=== PATIENT | male | born 1975 | race African-American/Black ===

== ENCOUNTER 2023-04-25 23:42 | Observation (INO) ==
[2023-04-25] MEDS ORDERED: ZOSYN 3.375 GM 3.375 GM in SODIUM CHLORIDE 100ML 100 ML IV ONE (23:51)
[2023-04-25] MEDS ORDERED: VANCOMYCIN 1.5 GRAM/300 ML PREMIX 1.5 GM/300 ML BAG IV ONE (23:52)
--- NOTE | 2023-04-25 23:56 | ED.PDOC ---
General ED Provider: Dr. JOSE ALFREDO MONROE MD Chief Complaint: Abscess Stated Complaint: abscess L groin abscess for the last several days. Has been taking some Bactrim from a friend without improvement. Time Seen by Provider: 04/25/23 23:43 Mode of Arrival: Ambulance Information Source: EMT Exam Limitations: No limitations Nursing and Triage Documentation Reviewed and Agree: Yes Skin Complaint Exam Skin/Soft Tissue Complaint/Exam Onset/Duration: 4 days ago Symptoms Are: Still present Timing: Constant Initial Severity: Mild Current Severity: Severe Location: L groin Character: Reports Redness, Swelling, Raised and Painful Aggravating: Reports Touch Alleviating: Reports None Associated Signs and Symptoms: Reports Drainage and Tenderness Related Surgical History: Reports None Recent Exposure to Others w/Similar Symptoms: No Skin Findings: Present Erythema, Induration, Fluctuant mass and Weeping skin Joint Tenderness Present: No Differential Diagnoses: Abscess, Cellulitis and MRSA Review of Systems Review Of Systems Constitutional: Reports No symptoms All Other Systems: Reviewed and Negative [facility] Medical History (Updated 04/26/23 @ 01:35 by JOSE ALFREDO MONROE MD) Carpal tunnel syndrome, right G56.01 - Carpal tunnel syndrome, right upper limb (ICD-10) Bipolar 1 disorder F31.9 - Bipolar disorder, unspecified (ICD-10) Diabetes E11.9 - Type 2 diabetes mellitus without complications (ICD-10) Physical Exam Physical Exam Appearance: Reports Ill-appearing Ill-appearing: None Pain Distress: Moderate Eyes: Reports EOMI ENT: Reports Oropharynx normal Neck: Supple Respiratory: Reports Airway patent Cardiovascular: Reports Pulses normal GI/: Reports Soft and Nontender Musculoskeletal: Reports Other (proximal L thigh with 16 x 11 cm raised fluctuant abscess, extensive cellulitic region that extends all the way down his left medial thigh, tender to touch, erythematous, no scrotal involvement) Skin: Reports Warm Neurological: Reports Cranial nerves intact, Alert and Oriented Psychiatric: Reports Affect appropriate Procedures Incision and Drainage Site: L groin Instrument Used: 11 Blade (2 cm incision) I & D Procedure: Yes Betadine Prep and Packing placed Lidocaine Used: Yes Type of Drainage: Present Pus and Blood Irrigated: Yes Was Culture Obtained?: Yes Critical Care Note Critical Care Note Total Critical Care Time (mins): 30 Comments: Critical care time spent was exclusive of separately billable procedures. Course Course 04/26/23 00:05 04/26/23 00:05 Orders, Labs, Meds: Lab Review 04/26/23 00:05 WBC 10.02 RBC 5.06 Hgb 14.5 Hct 43.4 MCV 85.8 MCH 28.7 MCHC 33.4 RDW Coeff of Katarina 12.2 Plt Count 313 Immature Gran % (Auto) 0.4 Neut % (Auto) 69.6 Lymph % (Auto) 19.3 [place] % (Auto) 9.3 Eos % (Auto) 1.0 Baso % (Auto) 0.4 Neut # (Auto) 7.0 H Lymph # (Auto) 1.9 [place] # (Auto) 0.9 Eos # (Auto) 0.1 Baso # (Auto) 0.0 Immature Gran # (Auto) 0.0 Sodium 133.3 L Potassium 3.90 Chloride 97.6 L Carbon Dioxide 28.5 Anion Gap 11.10 BUN 10.2 Creatinine 0.59 L Estimated GFR (MDRD) 180.00 BUN/Creatinine Ratio 17.28 Glucose 294.7 H Lactic Acid 1.29 Calcium 8.92 Total Bilirubin 0.54 AST 31.4 ALT 17.5 Alkaline Phosphatase 154.3 H Total Protein 8.28 H Albumin 4.07 Globulin 4.21 Albumin/Globulin Ratio 0.96 Orders Category Date Time Status ADMIT PATIENT SWING .TO [facility] (NON-MONITORED BED) ADMISSION 04/26/23 01:28 Active ACTIVITY .Up in Chair CARE 04/26/23 01:28 Active BLOOD GLUCOSE MONITORING (MED/SURG) 0630,1100,1700,2100 CARE 04/26/23 01:28 Active GIVE HS SNACK 2100 CARE 04/26/23 01:29 Active INCISION/WOUND CARE DAILY CARE 04/26/23 01:29 Active NPO REMINDER: IMAGING ONCE CARE 04/25/23 23:51 Completed VITAL SIGNS Q12HR CARE 04/26/23 01:28 Active ADA 1800 ROWENA. DIET DIETARY 04/26/23 Breakfast Ordered HS SNACK DIETARY 04/26/23 Dinner Ordered ED IV/MEDIPORT/POWERPORT .ONCE EMERGENCY 04/25/23 23:49 Active CBC W/ AUTO DIFF DAILY@0600 LAB 04/26/23 06:00 Ordered CBC W/ AUTO DIFF DAILY@0600 LAB 04/27/23 06:00 Ordered CBC W/ AUTO DIFF Stat LAB 04/25/23 23:49 Completed CMP [COMPREHENSIVE METABOLIC PANEL] Stat LAB 04/25/23 23:49 Completed COMPREHENSIVE METABOLIC PANEL DAILY@0600 LAB 04/26/23 06:00 Ordered COMPREHENSIVE METABOLIC PANEL DAILY@0600 LAB 04/27/23 06:00 Ordered LACTIC ACID Stat LAB 04/25/23 23:49 Completed PROCALCITONIN Stat LAB 04/26/23 Ordered SARS COV-2 RNA RAPID RENITA Stat LAB 04/26/23 01:26 Ordered WOUND CULTURE Stat LAB 04/26/23 01:20 Received 0.9 % Sodium Chloride [Saline Flush] Meds 04/25/23 23:49 Active 1 syr IVF PRN PRN Fentanyl Citrate/Pf [Sublimaze] Meds 04/26/23 00:22 Discontinued 75 mcg IVP ONCE ONE Fentanyl Citrate/Pf [Sublimaze] Meds 04/26/23 01:30 Active 75 mcg IVP Q4H PRN Hydrocodone Bit/Acetaminophen [[place] 5-325] Meds 04/26/23 01:30 Active 1 tab PO Q4H PRN Insulin Regular, Human [Humulin R] Meds 04/26/23 00:22 Discontinued 8 unit SUBCUT ONCE ONE Lidocaine HCl Inj [Lidocaine 2% 20 ml Mdv] Meds 04/26/23 00:58 Discontinued 1 ml INJ ONCE ONE Piperacillin Sodium/Tazobactam [Zosyn 3.375 gm] 3.375 Meds 04/25/23 23:51 Discontinued gm 0.9 % Sodium Chloride [Sodium Chloride 100Ml] 100 ml IV ONCE Piperacillin Sodium/Tazobactam [Zosyn 3.375 gm] 3.375 Meds 04/26/23 04:00 Active gm 0.9 % Sodium Chloride [Sodium Chloride 100Ml] 100 ml IV Q8H Ringers Lactated Solution [Lactated Ringers] 1,000 ml Meds 04/26/23 00:22 Discontinued IV BOLUS Vancomycin/Water For Inj (Peg) [Vancomycin 1.5 Gram/300 Meds 04/25/23 23:52 Discontinued ml Premix] 1.5 gm in 300 ml IV ONCE RESUSCITATION STATUS Routine OTHERS 04/26/23 01:[address] PELVIS W/CONTRAST Stat RADS 04/25/23 23:49 Completed ACTIVITIES CONSULT Routine THERAPIES 04/26/23 01:28 Ordered Medications Generic Name Dose Route Start Last Admin Trade Name Freq PRN Reason Stop Dose Admin Hydrocodone Bitart/Acetaminophen 1 tab 04/26/23 01:30 Hydrocodone Bit/Acetaminophen 5/325 Mg Tablet PO Q4H PRN pain Fentanyl Citrate 75 mcg 04/26/23 01:30 Fentanyl 50 Mcg/Ml Sdv IVP Q4H PRN pain Piperacillin Sod/Tazobactam 100 mls @ 200 mls/hr 04/26/23 04:00 Sod 3.375 gm/ Sodium Chloride IV 04/29/23 03:59 Q8H KAYA Sodium Chloride 1 syr 04/25/23 23:49 0.9% Sodium Chloride 10 Ml Disp.Syrin IVF PRN PRN To flush IV Discontinued Medications Generic Name Dose Route Start Last Admin Trade Name Freq PRN Reason Stop Dose Admin Fentanyl Citrate 75 mcg 04/26/23 00:22 04/26/23 00:51 Fentanyl 50 Mcg/Ml Sdv IVP 04/26/23 00:23 75 mcg ONCE ONE Administration Piperacillin Sod/Tazobactam 100 mls @ 200 mls/hr 04/25/23 23:51 04/26/23 00:52 Sod 3.375 gm/ Sodium Chloride IV 04/26/23 00:20 200 mls/hr ONCE ONE Administration VANCOMYCIN/WATER FOR INJ (PEG) 1.5 gm in 300 mls @ 200 mls/hr 04/25/23 23:52 04/26/23 00:57 Vancomycin 1.5 Gram/300 Ml Premix IV 04/26/23 01:21 200 mls/hr ONCE ONE Administration Lactated Ringer's 1,000 mls @ 1,000 mls/hr 04/26/23 00:22 04/26/23 00:44 Lactated Ringers IV 04/26/23 01:21 1,000 mls/hr BOLUS STA Administration Insulin Human Regular 8 unit 04/26/23 00:22 04/26/23 00:55 Insulin Regular, Human 100 Unit/Ml (3ml) Vial SUBCUT 04/26/23 00:23 8 unit ONCE ONE Administration Lidocaine HCl 1 ml 04/26/23 00:58 04/26/23 01:05 Lidocaine 2% 20 Ml Mdv INJ 04/26/23 00:59 10 ml ONCE ONE Administration Patient was a difficult stick for nursing staff. Patient refused blood cultures. Patient with large groin abscess. Plan to obtain CT imaging to further evaluate the extent of this abscess. Patient is a poorly controlled diabetic who has not been taking his medications. At high risk for extension into perineal and genital area. Examination does not have any crepitus or suggestion of gas formation. Patient is afebrile but does have a slightly elevated temperature. Is mildly tachycardic. Does not have a leukocytosis or lactic acidosis. Vancomycin and Zosyn initiated in the emergency department as well as a dose of 8 units of subcu insulin and IV fluids. CT scan demonstrates extensive cellulitic changes with a forming abscess. Patient has a 7 cm abscess. Please see procedure note for incision and drainage. Patient to be admitted to the hospital for IV antibiotics, dressing change, pain control. Case discussed with hospitalist. They will accept admission. Vital Signs: Temp Pulse Resp BP Pulse Ox 04/26/23 00:05 99.5 F 105 H 20 132/91 H 100 Discharge Plan Discharge Patient Disposition: ADMITTED INPATIENT Discharge Problem: Abscess, Cellulitis, Hyperglycemia Did you review [place] [employer] for ALL controlled substances?: Not Applicable ED Provider: JOSE ALFREDO MONROE Physician Progress Note: []
[2023-04-26 00:11] LABS: BASOPHILS % (AUTO) 0.4 % (0.0-3.0); EOSINOPHILS # (AUTO) 0.1 K/ul (0.0-0.7); HEMATOCRIT 43.4 % (42.0-52.0); HEMOGLOBIN 14.5 g/dl (14.0-18.0); IMMATURE GRANULOCYTE % (AUTO) 0.4 % (0.0-5.0); LYMPHOCYTES # (AUTO) 1.9 K/uL (0.60-3.4); LYMPHOCYTES % (AUTO) 19.3 (10.0-50.0); MEAN CORPUSCULAR HEMOGLOBIN 28.7 pg (27.0-31.0); MEAN CORPUSCULAR HGB CONC 33.4 (31.8-35.4); MEAN CORPUSCULAR VOLUME 85.8 fl (80.0-94.0); MONOCYTES # (AUTO) 0.9 K/uL (0.4-2.0); MONOCYTES % (AUTO) 9.3 (0-10); NEUTROPHILS % (AUTO) 69.6 % (42.2-75.2); PLATELET COUNT 313 10^3/uL (140-440); RDW COEFFICIENT OF VARIATION 12.2 % (11.6-14.8); RED BLOOD COUNT 5.06 10^6/ul (4.70-6.10); WHITE BLOOD COUNT 10.02 K/ul (4.2-10.2)
[2023-04-26] MEDS ORDERED: LACTATED RINGERS 1,000 ML IV STA (00:22)
[2023-04-26] MEDS ORDERED: HUMULIN R SUBCUT ONE (00:22)
[2023-04-26] MEDS ORDERED: SUBLIMAZE IVP ONE (00:22)
[2023-04-26 00:24] LABS: ALANINE AMINOTRANSFERASE 17.5 U/L (0-50); ALBUMIN 4.07 g/dL (3.5-5.0); ALKALINE PHOSPHATASE 154.3 U/L (38-126); ASPARTATE AMINO TRANSFERASE 31.4 U/L (17-59); BILIRUBIN,TOTAL 0.54 mg/dL (0.2-1.3); BLOOD UREA NITROGEN 10.2 mg/dL (9-20); CALCIUM 8.92 mg/dL (8.4-10.2); CARBON DIOXIDE 28.5 mmol/L (22-30.0); CHLORIDE 97.6 mmol/L (98-107); CREATININE 0.59 mg/dL (0.60-1.10); GLUCOSE 294.7 mg/dL (74-106); SODIUM 133.3 mmol/L (134.5-145); TOTAL PROTEIN 8.28 g/dL (6.3-8.2)
[2023-04-26 00:25] LABS: POTASSIUM 3.9 mmol/L (3.5-5.1)
--- NOTE | 2023-04-26 00:55 | CT ---
EXAM: CT OF THE PELVIS WITH CONTRAST History: Left groin abscess. Technique: Multiplanar CT images through the pelvis were obtained following administration of IV con trast FINDINGS: The appendix is normal. No dilated loops of bowel. No bladder wall thickening. No perir ectal inflammation. No acute osseous abnormalities. There is extensive edema and inflammation within the left groin with developing fluid collection jude uring about 7 cm x 4.3 cm. There is associated skin thickening as well with enlarged left inguinal l ymph nodes that are reactive. Impression: Extensive left groin cellulitis with developing abscess All CT scans are performed using dose optimization techniques as appropriate to the performed exam an d include at least one of the following: Automated exposure control, adjustment of the mA and/or kV according t o size, and the use of iterative reconstruction technique.
[2023-04-26] MEDS ORDERED: LIDOCAINE 2% 20 ML MDV INJ ONE (00:58)
[2023-04-26] MEDS ORDERED: SUBLIMAZE IVP PRN (01:30)
[2023-04-26 02:14] LABS: SARS COV-2 RNA RAPID NAAT NEGATIVE (NEGATIVE)
[2023-04-26] MEDS: NORCO 5-325 PO PRN ×2 (03:35→23:45)
[2023-04-26] MEDS ORDERED: ZOSYN 3.375 GM 3.375 GM in SODIUM CHLORIDE 100ML 100 ML IV SCH ×2 (04:00→08:00)
[2023-04-26 04:25] VITALS: BMI 34.1
[2023-04-26] MEDS: HUMULIN R SUBCUT PRN ×4 (06:32→20:42)
[2023-04-26] MEDS: ZOSYN 3.375 GM 3.375 GM in SODIUM CHLORIDE 100ML 100 ML IV SCH ×4 (08:08→23:37)
[2023-04-26] MEDS ORDERED: VANCOMYCIN 1 GRAM/200 ML PREMIX 1 GM/200 ML BAG IV SCH (09:00)
[2023-04-26] MEDS: VANCOMYCIN 1.25 GM/250 ML BAG 1.25 GM/250 ML BAG IV SCH ×3 (10:08→21:58)
--- NOTE | 2023-04-26 10:55 | PCM ---
Date of Service Date Seen by Provider: 04/26/23 Time Seen by Provider: 09:00 Admit Day/Time Admission Date: 04/26/23 Admission Time: 01:30 Reason for Admission Chief Complaint: ABSCESS IN LEFT GROIN Hospital Provider [facility] History of Present Illness History of Present Illness: 47 yo male presented to the ER with complaints of a groin abscess. Patient states that he noticed the area "2 days ago" and it progressively got worse. Has been draining some at home "orange" drainage from blood. States that he is unaware if he has had a fever or not. Denies any other symptoms. Case Discussed With Case Discussed With: Patient's case was discussed with the ER Physicians, Dr. Gallegos [facility] Medical History Carpal tunnel syndrome, right G56.01 - Carpal tunnel syndrome, right upper limb (ICD-10) Bipolar 1 disorder F31.9 - Bipolar disorder, unspecified (ICD-10) Diabetes E11.9 - Type 2 diabetes mellitus without complications (ICD-10) Family History BROTHER Diabetes FATHER Diabetes FATHER Hypertension BROTHER Hypertension Mother Hypertension Social History Smoking and tobacco status: Former smoker Details: rarely drinks alcohol Substance use type: marijuana and methamphetamine Allergies Allergies Allergy/AdvReac Type Severity Reaction Status Date / Time morphine AdvReac Unknown Verified 04/26/23 00:05 Current Medications Home Medications aspirin 81 mg tablet,delayed release (Adult Aspirin Regimen) 81 mg PO QDAY 06/13/22 [History Confirmed 08/13/22 Last Taken Unknown] hydroxyzine HCl 25 mg tablet 25 mg PO TID PRN anxiety #90 tabs 06/13/22 [Rx Confirmed 08/13/22 Last Taken Unknown] atorvastatin 40 mg tablet 40 mg PO QPM #30 tabs 07/14/22 [Rx Confirmed 08/13/22 Last Taken Unknown] empagliflozin 10 mg tablet (Jardiance) 10 mg PO QAM #30 tabs 07/14/22 [Rx Confirmed 08/13/22 Last Taken Unknown] fluoxetine 20 mg capsule 20 mg PO QDAY #30 caps 07/14/22 [Rx Confirmed 08/13/22 Last Taken Unknown] metformin 1,000 mg tablet 1,000 mg PO BID #60 tabs 08/10/22 [Rx Confirmed 08/13/22 Last Taken Unknown] blood sugar diagnostic (Blood Glucose Test strips) #50 ea 08/12/22 [Rx Confirmed 08/12/22 Last Taken Unknown] blood-glucose meter (Blood Glucose Monitoring kit) #1 ea 08/12/22 [Rx Confirmed 08/12/22 Last Taken Unknown] lancets 33 gauge #100 ea 08/12/22 [Rx Confirmed 08/12/22 Last Taken Unknown] dulaglutide 0.75 mg/0.5 mL subcutaneous pen injector (Trulicity) 0.75 mg (0.5 mL) subcut QWEEK #2 mL 08/20/22 [Rx Last Taken Unknown] Home Hydrocodone Bitart/Acetaminophen (Hydrocodone Bit/Acetaminophen 5/325 Mg Tablet) 1 tab PO Q4H PRN PRN Reason: pain Last Admin: 04/26/23 03:35 Dose: 1 tab Piperacillin Sod/Tazobactam (Sod 3.375 gm/ Sodium Chloride) 100 mls @ 200 mls/hr IV Q6HR [facility] Stop: 04/29/23 07:29 Last Admin: 04/26/23 08:08 Dose: 200 mls/hr VANCOMYCIN/WATER FOR INJ (PEG) (Vancomycin 1.25 Gm/250 Ml Bag) 1.25 gm in 250 mls @ 250 mls/hr IV Q8HR [facility] Stop: 04/29/23 07:59 Last Admin: 04/26/23 10:08 Dose: 250 mls/hr Insulin Human Regular (Insulin Regular, Human 100 Unit/Ml (3ml) Vial) 0 unit SUBCUT PRN PRN; Protocol PRN Reason: Hyperglycemia Last Admin: 04/26/23 06:32 Dose: 12 unit Sodium Chloride (0.9% Sodium Chloride 10 Ml Disp.Syrin) 1 syr IVF PRN PRN PRN Reason: To flush IV Discontinued Medications Fentanyl Citrate (Fentanyl 50 Mcg/Ml Sdv) 75 mcg IVP ONCE ONE Stop: 04/26/23 00:23 Last Admin: 04/26/23 00:51 Dose: 75 mcg Fentanyl Citrate (Fentanyl 50 Mcg/Ml Sdv) 75 mcg IVP Q4H PRN PRN Reason: pain Piperacillin Sod/Tazobactam (Sod 3.375 gm/ Sodium Chloride) 100 mls @ 200 mls/hr IV ONCE ONE Stop: 04/26/23 00:20 Last Admin: 04/26/23 00:52 Dose: 200 mls/hr VANCOMYCIN/WATER FOR INJ (PEG) (Vancomycin 1.5 Gram/300 Ml Premix) 1.5 gm in 300 mls @ 200 mls/hr IV ONCE ONE Stop: 04/26/23 01:21 Last Admin: 04/26/23 00:57 Dose: 200 mls/hr Lactated Ringer's (Lactated Ringers) 1,000 mls @ 1,000 mls/hr IV BOLUS STA Stop: 04/26/23 01:21 Last Infusion: 04/26/23 08:02 Dose: Infused Piperacillin Sod/Tazobactam (Sod 3.375 gm/ Sodium Chloride) 100 mls @ 200 mls/hr IV Q8H KAYA Stop: 04/29/23 03:59 Last Admin: 04/26/23 07:26 Dose: Not Given Piperacillin Sod/Tazobactam (Sod 3.375 gm/ Sodium Chloride) 100 mls @ 200 mls/hr IV Q8H KAYA Stop: 04/29/23 07:59 Insulin Human Regular (Insulin Regular, Human 100 Unit/Ml (3ml) Vial) 8 unit SUBCUT ONCE ONE Stop: 04/26/23 00:23 Last Admin: 04/26/23 00:55 Dose: 8 unit Lidocaine HCl (Lidocaine 2% 20 Ml Mdv) 1 ml INJ ONCE ONE Stop: 04/26/23 00:59 Last Admin: 04/26/23 01:05 Dose: 10 ml Review of Systems Constitutional: Reports No symptoms Head: Reports Normocephalic and Atraumatic Eyes: Reports No symptoms Ears: Reports No symptoms Nose: Reports No symptoms Mouth: Reports No symptoms Throat: Reports No symptoms Cardiovascular: Reports No symptoms Respiratory: Reports No symptoms Gastrointestinal: Reports No symptoms Genitourinary: Reports No Symptoms Musculoskeletal: Reports No symptoms Dermatologic: Reports Other (abscess to L groin) Endocrine: Reports No symptoms Hematology: Reports No symptoms Immunology: Reports No symptoms Neurological: Reports No symptoms Psychiatric: Reports No symptoms Physical examination Most Recent Vital Signs: Most Recent Vital Signs Temperature 98.9 F 04/26/23 06:00 Temperature Source Temporal Artery Scan 10/29/23 06:00 Temperature Source Oral 04/26/23 00:05 Pulse Rate 96 04/26/23 08:00 Respiratory Rate 20 04/26/23 06:00 Blood Pressure 132/80 04/26/23 06:00 Blood Pressure Mean 97 04/26/23 06:00 Blood Pressure Left Arm 138/43 04/26/23 03:01 Blood Pressure Location Left Arm 04/26/23 06:00 Blood Pressure Position Supine 04/26/23 06:00 O2 Sat by Pulse Oximetry 100 04/26/23 06:00 Oxygen Delivery Method Room Air 04/26/23 08:00 Height 6 ft 3 in 04/26/23 03:01 Weight 273 lb 4 oz 04/26/23 03:01 Appearance: Positive No Apparent Distress and Alert and Oriented x3 Skin: Positive Other (proximal L thigh with 16 x 11 cm raised fluctuant abscess, extensive cellulitic region that extends all the way down his left medial thigh, tender to touch, erythematous, no scrotal involvement) HEENT: Positive Normocephalic and PERRLA Neck: Positive Supple and Midline Trachea Chest/Lungs: Positive Symmetrical With Equal Breath Sounds, Clear to Auscultation Bilaterally and Good Air Movement all 4 Lung Crum Heart: Positive RRR, Pulses Normal, No S3 Auscultated and No S4 Auscultated GI/: Positive Soft, Nontender, Bowel Sounds Normal and No Distention Musculoskeletal: Positive Not Examined Extremities: Positive Intact Peripheral Pulses, Stable Joints Without Laxity and Good ROM in All Joints Neurological: Positive Sensation Intact, Motor intact, Reflexes Intact, Alert, Oriented and Muscle Strength 5/5 in Upper and Lower Extremities Bilaterally Psychiatric: Positive Other (agitated) Labs This Visit Labs This Visit: Labs This Visit 04/26/23 04/26/23 00:05 01:37 WBC 10.02 RBC 5.06 Hgb 14.5 Hct 43.4 MCV 85.8 MCH 28.7 MCHC 33.4 RDW Coeff of Katar[place] 12.2 Plt Count 313 Immature Gran % (Auto) 0.4 Neut % (Auto) 69.6 Lymph % (Auto) 19.3 [place] % (Auto) 9.3 Eos % (Auto) 1.0 Baso % (Auto) 0.4 Neut # (Auto) 7.0 H Lymph # (Auto) 1.9 [place] # (Auto) 0.9 Eos # (Auto) 0.1 Baso # (Auto) 0.0 Immature Gran # (Auto) 0.0 Sodium 133.3 L Potassium 3.90 Chloride 97.6 L Carbon Dioxide 28.5 Anion Gap 11.10 BUN 10.2 Creatinine 0.59 L Estimated GFR (MDRD) 180.00 BUN/Creatinine Ratio 17.28 Glucose 294.7 H Lactic Acid 1.29 Calcium 8.92 Total Bilirubin 0.54 AST 31.4 ALT 17.5 Alkaline Phosphatase 154.3 H Total Protein 8.28 H Albumin 4.07 Globulin 4.21 Albumin/Globulin Ratio 0.96 Procalcitonin < 0.05 SARS CoV-2 RNA Rapid RENITA Negative Microbiology This Visit 04/26/23 01:20 Groin Wound Culture - Preliminary Imaging Imaging: EXAM: CT OF THE PELVIS WITH CONTRAST History: Left groin abscess. Technique: Multiplanar CT images through the pelvis were obtained following administration of IV contrast FINDINGS: The appendix is normal. No dilated loops of bowel. No bladder wall thickening. No perirectal inflammation. No acute osseous abnormalities. There is extensive edema and inflammation within the left groin with developing fluid collection measuring about 7 cm x 4.3 cm. There is associated skin thickening as well with enlarged left inguinal lymph nodes that are reactive. Impression: Extensive left groin cellulitis with developing abscess Review Statement Review Statement: I have independently reviewed and interpreted the labs/EKGs/imaging that were ordered by the ER provider. I have reviewed all outside records that are available currently in our EMR including imaging/notes/labs from previous visits. Plan Plan: 1. Extensive left groin cellulitis with developing abscess - I&D completed by ER doc with packing placed, vanc and zosyn, wound culture pending 2. Diabetes Mellitus, Type 2 - noncompliant, has taken home meds in >3 months and does not wish to, ADA diet Refusing all labs. DVT Prophylaxis: Up ad leif Time Spent: Greater than 80 minutes spent with patient, 50% of the time spent with this patient was devoted to counseling and coordination of care. [facility] Plannin minutes spent discussing advance care planning. Disposition: Admit to: Med/surg Observation Full Code Discussed Plan of Care with Dr. Charly Yusuf Medications Medication Orders: Medications Ordered Category Date Time Status 0.9 % Sodium Chloride [Saline Flush] Meds 04/25/23 23:49 Active 1 syr IVF PRN PRN Hydrocodone Bit/Acetaminophen [[place] 5-325] Meds 04/26/23 01:30 Active 1 tab PO Q4H PRN Insulin Regular, Human [Humulin R] Meds 04/26/23 06:11 Active See Protocol SUBCUT PRN PRN Piperacillin Sodium/Tazobactam [Zosyn 3.375 gm] 3.375 Meds 04/26/23 07:30 Active gm 0.9 % Sodium Chloride [Sodium Chloride 100Ml] 100 ml IV Q6HR Vancomycin/Water For Inj (Peg) [Vancomycin 1.25 gm/250 Meds 04/26/23 08:00 Active ml Bag] 1.25 gm in 250 ml IV Q8HR
[2023-04-27] MEDS: VANCOMYCIN 1.25 GM/250 ML BAG 1.25 GM/250 ML BAG IV SCH ×3 (04:55→21:23)
[2023-04-27] MEDS: HUMULIN R SUBCUT PRN ×4 (05:55→20:29)
[2023-04-27] MEDS: ZOSYN 3.375 GM 3.375 GM in SODIUM CHLORIDE 100ML 100 ML IV SCH ×4 (06:12→23:52)
--- NOTE | 2023-04-27 09:18 | PCM.PROG ---
Date/Time Seen Date Seen by Provider: 04/27/23 Time Seen by Provider: 08:30 Provider Provider: CAYETANO URIOSTEGUI [facility] Chief Complaint Chief Complaint: ABSCESS IN LEFT GROIN Subjective Subjective: Patient still having some pain, trying to not take pain meds if able though. Still refusing labs despite knowing importance of following infection markers, vanc trough, etc. Packing removed today. Objective Appearance: Positive Well-appearing, Well-nourished, No Apparent Distress and Alert and Oriented x3 Chest/Lungs: Positive Clear to Auscultation Bilaterally; Negative Rales, Rhonci or Wheezes Heart: Positive RRR GI/: Positive Soft, Nontender, Bowel Sounds Normal and No Distention Neurological: Positive Cranial Nerves Intact, Alert, Oriented and Muscle Strength 5/5 in Upper and Lower Extremities Bilaterally Additional Findings: Left groin - significant induration noted but no fluctuance noted. Packing removed. No significant drainage/purulence noted, only mild amount of blood tinged fluid. No involvement of penis/scrotum/perineal area. Redness improving and localized now to indurated area. Mild warmth noted. Vital Signs Vital Signs: Vital Signs: Last 24 Hours 04/26/23 10:00 04/26/23 11:00 04/26/23 11:53 Temperature 97.7 F Temperature Source Temporal Artery Scan Pulse Rate 82 Respiratory Rate 24 H Blood Pressure 138/89 Blood Pressure Mean 105 Blood Pressure Location Right Arm Blood Pressure Position O2 Sat by Pulse Oximetry 100 Oxygen Delivery Method Room Air Room Air Room Air 04/26/23 13:00 04/26/23 14:00 04/26/23 14:00 Temperature 97.7 F Temperature Source Temporal Artery Scan Pulse Rate 93 Respiratory Rate 20 Blood Pressure 137/84 Blood Pressure Mean 101 Blood Pressure Location Left Arm Blood Pressure Position Supine O2 Sat by Pulse Oximetry 99 Oxygen Delivery Method Room Air Room Air Room Air 04/26/23 15:00 04/26/23 16:00 04/26/23 17:00 Temperature Temperature Source Pulse Rate Respiratory Rate Blood Pressure Blood Pressure Mean Blood Pressure Location Blood Pressure Position O2 Sat by Pulse Oximetry Oxygen Delivery Method Room Air Room Air Room Air 04/26/23 18:00 04/26/23 18:00 04/26/23 19:00 Temperature 97 F L Temperature Source Temporal Artery Scan Pulse Rate 94 Respiratory Rate 18 Blood Pressure 149/90 H Blood Pressure Mean 109 Blood Pressure Location Right Arm Blood Pressure Position Sitting O2 Sat by Pulse Oximetry 100 Oxygen Delivery Method Room Air Room Air Room Air 04/26/23 20:00 04/26/23 20:00 04/26/23 21:00 Temperature Temperature Source Pulse Rate Respiratory Rate Blood Pressure Blood Pressure Mean Blood Pressure Location Blood Pressure Position O2 Sat by Pulse Oximetry Oxygen Delivery Method Room Air Room Air Room Air 04/26/23 21:09 04/26/23 22:00 04/26/23 23:00 Temperature 99.6 F Temperature Source Temporal Artery Scan Pulse Rate 86 Respiratory Rate 20 Blood Pressure 140/89 Blood Pressure Mean 106 Blood Pressure Location Left Femoral Artery Blood Pressure Position O2 Sat by Pulse Oximetry 100 Oxygen Delivery Method Room Air Room Air Room Air 04/27/23 00:00 04/27/23 01:00 04/27/23 02:00 Temperature 98.9 F Temperature Source Temporal Artery Scan Pulse Rate 95 Respiratory Rate 19 Blood Pressure 138/79 Blood Pressure Mean 98 Blood Pressure Location Left Arm Blood Pressure Position Supine O2 Sat by Pulse Oximetry 100 Oxygen Delivery Method Room Air Room Air Room Air 04/27/23 02:00 04/27/23 03:00 04/27/23 03:54 Temperature Temperature Source Pulse Rate Respiratory Rate Blood Pressure Blood Pressure Mean Blood Pressure Location Blood Pressure Position O2 Sat by Pulse Oximetry Oxygen Delivery Method Room Air Room Air Room Air 04/27/23 05:00 04/27/23 05:54 04/27/23 06:00 Temperature 99.3 F Temperature Source Temporal Artery Scan Pulse Rate 88 Respiratory Rate 17 Blood Pressure 142/91 H Blood Pressure Mean 108 Blood Pressure Location Left Arm Blood Pressure Position Supine O2 Sat by Pulse Oximetry 100 Oxygen Delivery Method Room Air Room Air Room Air 04/27/23 07:00 04/27/23 08:00 Temperature Temperature Source Pulse Rate Respiratory Rate Blood Pressure Blood Pressure Mean Blood Pressure Location Blood Pressure Position O2 Sat by Pulse Oximetry Oxygen Delivery Method Room Air Room Air Additional Comments Additional Comments: I have independently reviewed and interpreted the labs/EKGs/imaging ordered during this hospital stay. I have reviewed outside records that are available in our EMR that pertain to medical stay including imaging/notes/labs from previous visits. Active Medications Active Medications: Medications Generic Name Dose Route Start Last Admin Trade Name Freq PRN Reason Stop Dose Admin Hydrocodone Bitart/Acetaminophen 1 tab 04/26/23 01:30 04/26/23 23:45 Hydrocodone Bit/Acetaminophen 5/325 Mg Tablet PO 1 tab Q4H PRN Administration pain Piperacillin Sod/Tazobactam 100 mls @ 200 mls/hr 04/26/23 07:30 04/27/23 06:12 Sod 3.375 gm/ Sodium Chloride IV 04/29/23 07:29 200 mls/hr Q6HR KAYA Administration VANCOMYCIN/WATER FOR INJ (PEG) 1.25 gm in 250 mls @ 250 mls/hr 04/26/23 08:00 04/27/23 04:55 Vancomycin 1.25 Gm/250 Ml Bag IV 04/29/23 07:59 250 mls/hr Q8HR KAYA Administration Insulin Human Regular 0 unit 04/26/23 06:11 04/27/23 05:55 Insulin Regular, Human 100 Unit/Ml (3ml) Vial SUBCUT 5 unit PRN PRN Administration Hyperglycemia Protocol Sodium Chloride 1 syr 04/25/23 23:49 0.9% Sodium Chloride 10 Ml Disp.Syrin IVF PRN PRN To flush IV Plan Plan: 1. Extensive left groin cellulitis with developing abscess - I&D completed by ER doc with packing placed, cont vanc and zosyn, wound culture pending but showing no growth. Packing removed today. Patient will shower and cleanse area well. Will monitor for purulent discharge, will place more packing today if indicated. At this time no significant drainage noted. [place] ordered prn for pain. No penile/scrotal/perineal involvement, symptoms are improving, will not add on flagyl at this point. 2. Diabetes Mellitus, Type 2 - noncompliant, hasn't taken home meds in >3 months and does not wish to, ADA diet, sliding scale insulin. Patient continues to refuse labs despite knowing importance of monitoring infection markers, renal function, and vanc trough. He states due to his mental illness that he will become combative if anyone tries to draw his blood. Pt is sure he has had a tdap in last 5 years. Dispo - Potential discharge tomorrow if cellulitis continues to improve. Review Statement Review Statement: I have personally discussed and reviewed the patient's visit/currently labs/imaging/decision making with Dr. Yusuf, my supervising attending. Greater that 50 minutes spent with patient, 50% of the time spent with this patient was devoted to counseling and coordination of care.
[2023-04-27 14:26] LABS: BASOPHILS % (AUTO) 0.6 % (0.0-3.0); EOSINOPHILS # (AUTO) 0.2 K/ul (0.0-0.7); EOSINOPHILS % (AUTO) 2.2 % (0.0-7.0); HEMATOCRIT 41.8 % (42.0-52.0); HEMOGLOBIN 13.8 g/dl (14.0-18.0); IMMATURE GRANULOCYTE % (AUTO) 0.1 % (0.0-5.0); LYMPHOCYTES # (AUTO) 1.7 K/uL (0.60-3.4); LYMPHOCYTES % (AUTO) 23.1 (10.0-50.0); MEAN CORPUSCULAR HEMOGLOBIN 29.2 pg (27.0-31.0); MEAN CORPUSCULAR VOLUME 88.4 fl (80.0-94.0); MONOCYTES # (AUTO) 0.7 K/uL (0.4-2.0); MONOCYTES % (AUTO) 9.4 (0-10); NEUTROPHILS # (AUTO) 4.6 K/ul (2.0-6.9); NEUTROPHILS % (AUTO) 64.6 % (42.2-75.2); PLATELET COUNT 300 10^3/uL (140-440); RDW COEFFICIENT OF VARIATION 12.2 % (11.6-14.8); RED BLOOD COUNT 4.73 10^6/ul (4.70-6.10); WHITE BLOOD COUNT 7.15 K/ul (4.2-10.2)
[2023-04-27 14:36] LABS: ALANINE AMINOTRANSFERASE 13.6 U/L (0-50); ALBUMIN 3.4 g/dL (3.5-5.0); ALKALINE PHOSPHATASE 135.1 U/L (38-126); ASPARTATE AMINO TRANSFERASE 17.9 U/L (17-59); BILIRUBIN,TOTAL 0.22 mg/dL (0.2-1.3); BLOOD UREA NITROGEN 6.4 mg/dL (9-20); CALCIUM 8.33 mg/dL (8.4-10.2); CARBON DIOXIDE 30.2 mmol/L (22-30.0); CHLORIDE 100.8 mmol/L (98-107); CREATININE 0.59 mg/dL (0.60-1.10); GLUCOSE 331.8 mg/dL (74-106); POTASSIUM 4.04 mmol/L (3.5-5.1); SODIUM 132.9 mmol/L (134.5-145); TOTAL PROTEIN 7.13 g/dL (6.3-8.2)
[2023-04-27 21:38] VITALS: RESP 18
[2023-04-28] MEDS: VANCOMYCIN 1.25 GM/250 ML BAG 1.25 GM/250 ML BAG IV SCH (04:58)
[2023-04-28 05:15] VITALS: BP 132/86; PULSE 81; TEMP 98.1
[2023-04-28 05:36] LABS: BASOPHILS % (AUTO) 0.2 % (0.0-3.0); EOSINOPHILS # (AUTO) 0.1 K/ul (0.0-0.7); EOSINOPHILS % (AUTO) 1.7 % (0.0-7.0); HEMATOCRIT 41.7 % (42.0-52.0); HEMOGLOBIN 13.8 g/dl (14.0-18.0); IMMATURE GRANULOCYTE % (AUTO) 0.2 % (0.0-5.0); LYMPHOCYTES # (AUTO) 2.1 K/uL (0.60-3.4); LYMPHOCYTES % (AUTO) 24.9 (10.0-50.0); MEAN CORPUSCULAR HEMOGLOBIN 29.1 pg (27.0-31.0); MEAN CORPUSCULAR HGB CONC 33.1 (31.8-35.4); MEAN CORPUSCULAR VOLUME 87.8 fl (80.0-94.0); MONOCYTES # (AUTO) 0.8 K/uL (0.4-2.0); MONOCYTES % (AUTO) 9.3 (0-10); NEUTROPHILS # (AUTO) 5.2 K/ul (2.0-6.9); NEUTROPHILS % (AUTO) 63.7 % (42.2-75.2); PLATELET COUNT 333 10^3/uL (140-440); RDW COEFFICIENT OF VARIATION 12.1 % (11.6-14.8); RED BLOOD COUNT 4.75 10^6/ul (4.70-6.10); WHITE BLOOD COUNT 8.24 K/ul (4.2-10.2)
[2023-04-28 05:47] LABS: ALBUMIN 3.57 g/dL (3.5-5.0); ALKALINE PHOSPHATASE 110.2 U/L (38-126); ASPARTATE AMINO TRANSFERASE 16.3 U/L (17-59); BILIRUBIN,TOTAL 0.3 mg/dL (0.2-1.3); BLOOD UREA NITROGEN 7.9 mg/dL (9-20); CALCIUM 8.38 mg/dL (8.4-10.2); CARBON DIOXIDE 27.4 mmol/L (22-30.0); CHLORIDE 102.6 mmol/L (98-107); CREATININE 0.54 mg/dL (0.60-1.10); GLUCOSE 205.3 mg/dL (74-106); POTASSIUM 3.77 mmol/L (3.5-5.1); SODIUM 134.1 mmol/L (134.5-145); TOTAL PROTEIN 7.59 g/dL (6.3-8.2)
[2023-04-28] MEDS: HUMULIN R SUBCUT PRN (06:06)
[2023-04-28] MEDS: ZOSYN 3.375 GM 3.375 GM in SODIUM CHLORIDE 100ML 100 ML IV SCH (06:29)
--- NOTE | 2023-04-28 09:25 | DCSUM ---
Admission Date Admission Date: 04/26/23 Discharge Date Discharge Date: 04/28/23 Admission Diagnosis Admission Diagnosis: 1. Extensive left groin cellulitis with developing abscess Discharge Diagnosis Discharge Diagnosis: 1. Extensive left groin cellulitis with developing abscess s/p I&D due to strep agalactiae - Improved 2. Diabetes Mellitus, Type 2 - noncompliant Hospital Provider Hospital Provider: CAYETANO URIOSTEGUI PA-C, [facility] Summary of History and Physical Summary of History and Physical: 47 yo male presented to the ER with complaints of a groin abscess. Patient states that he noticed the area "2 days ago" and it progressively got worse. Has been draining some at home "orange" drainage from blood. States that he is unaware if he has had a fever or not. Denies any other symptoms. Ct pelvis in ER showed significant cellulitis and developing abscess. ERP drained abscess in ER and placed packing. Patient started on vanc and zosyn. Hospital Course Subjective: Pt remained afebrile. Cellulitis improved. Packing removed on 04/27 and no significant drainage/discharge noted. Pt ambulatory. Initially patient refused labs but was later agreeable to monitor vanc trough. WBC count normal. Pt still has significant induration but no fluctuance. Wound culture grew strep agalactiae. Sensitive to vanc and levaquin. Will discharge home on 7 days of levaquin. Advised to take warm shower and wash gently with soap and water daily. Red flags on when to return discussed. F/u with pcp this week as scheduled. Pt agrees to plan of care. Of note, patient has not been complaint with diabetes medications and states he will not take them, therefore they were not ordered for him other than sliding scale insulin. Appearance: Pleasant, No Apparent Distress, Alert, Well-appearing and Well- nourished HEENT: MMM CVS: No Murmur Abdomen: Soft, Non-Tender and No Distention Respiratory: No Dyspnea Extremities: No Edema Additional Findings: Left groin - Packing removed 04/27. Minimal bloody drainage on dressing since. Significant induration but improving. No fluctuance noted. No purulent discharge expressed. Redness and warmth significantly improved. Pt ambulatory. No involvement of penis/scrotum/perineal area. No desquamation of skin. Vital Signs: Most Recent Vital Signs Temperature 98.1 F 04/28/23 05:13 Temperature Source Oral 04/28/23 05:13 Temperature Source Oral 04/26/23 00:05 Pulse Rate 81 04/28/23 05:13 Respiratory Rate 18 04/28/23 05:13 Blood Pressure 132/86 04/28/23 05:13 Blood Pressure Mean 101 04/28/23 05:13 Blood Pressure Left Arm 138/43 04/26/23 03:01 Blood Pressure Location Right Arm 04/28/23 05:13 Blood Pressure Position Supine 04/28/23 05:13 O2 Sat by Pulse Oximetry 97 04/28/23 05:13 Oxygen Delivery Method Room Air 04/28/23 08:00 Height 6 ft 3 in 04/26/23 03:01 Weight 273 lb 4 oz 04/26/23 03:01 Imaging: EXAM: CT OF THE PELVIS WITH CONTRAST History: Left groin abscess. Technique: Multiplanar CT images through the pelvis were obtained following administration of IV contrast FINDINGS: The appendix is normal. No dilated loops of bowel. No bladder wall thickening. No perirectal inflammation. No acute osseous abnormalities. There is extensive edema and inflammation within the left groin with developing fluid collection measuring about 7 cm x 4.3 cm. There is associated skin thickening as well with enlarged left inguinal lymph nodes that are reactive. Impression: Extensive left groin cellulitis with developing abscess Lab Results Last 24 Hours: 04/28/23 04/27/23 05:05 13:56 WBC 8.24 7.15 RBC 4.75 4.73 Hgb 13.8 L 13.8 L Hct 41.7 L 41.8 L MCV 87.8 88.4 MCH 29.1 29.2 MCHC 33.1 33.0 RDW Coeff of Katarina 12.1 12.2 Plt Count 333 300 Immature Gran % (Auto) 0.2 0.1 Neut % (Auto) 63.7 64.6 Lymph % (Auto) 24.9 23.1 Coffee % (Auto) 9.3 9.4 Eos % (Auto) 1.7 2.2 Baso % (Auto) 0.2 0.6 Neut # (Auto) 5.2 4.6 Lymph # (Auto) 2.1 1.7 Coffee # (Auto) 0.8 0.7 Eos # (Auto) 0.1 0.2 Baso # (Auto) 0.0 0.0 Immature Gran # (Auto) 0.0 0.0 Sodium 134.1 L 132.9 L Potassium 3.77 4.04 Chloride 102.6 100.8 Carbon Dioxide 27.4 30.2 H Anion Gap 7.87 5.94 BUN 7.9 L 6.4 L Creatinine 0.54 L 0.59 L Estimated GFR (MDRD) 199.00 180.00 BUN/Creatinine Ratio 14.62 10.84 Glucose 205.3 H D 331.8 H Calcium 8.38 L 8.33 L Total Bilirubin 0.30 0.22 AST 16.3 L 17.9 ALT 13.0 13.6 Alkaline Phosphatase 110.2 135.1 H Total Protein 7.59 7.13 Albumin 3.57 3.40 L Globulin 4.02 3.73 Albumin/Globulin Ratio 0.88 0.91 Vancomycin Trough 7.791 L Discharge Instructions Discharge Planning: Discharge Planning > [address] Aman Yusuf. Discharge Medications: Medications at Discharge (Home Meds & RX) aspirin 81 mg tablet,delayed release (Adult Aspirin Regimen) 81 mg PO QDAY 06/13/22 hydroxyzine HCl 25 mg tablet 25 mg PO TID PRN anxiety #90 tabs 06/13/22 atorvastatin 40 mg tablet 40 mg PO QPM #30 tabs 07/14/22 empagliflozin 10 mg tablet (Jardiance) 10 mg PO QAM #30 tabs 07/14/22 fluoxetine 20 mg capsule 20 mg PO QDAY #30 caps 07/14/22 metformin 1,000 mg tablet 1,000 mg PO BID #60 tabs 08/10/22 blood sugar diagnostic (Blood Glucose Test strips) #50 ea 08/12/22 blood-glucose meter (Blood Glucose Monitoring kit) #1 ea 08/12/22 lancets 33 gauge #100 ea 08/12/22 dulaglutide 0.75 mg/0.5 mL subcutaneous pen injector (Trulicity) 0.75 mg (0.5 mL) subcut QWEEK #2 mL 08/20/22 levofloxacin 750 mg tablet 750 mg PO DAILY 7 days #7 tabs 04/28/23 Discharge Plan Discharge Discharge Orders: Discharge Patient (ONCE); Ordered 04/28/23 Ordered By: CAYETANO URIOSTEGUI Activity Restrictions/Additional Instructions: DISCHARGE TO HOME DX: LEFT GROIN ABSCESS PHARMACY: [facility]TIBIOT[facility] WASH GENTLY WITH WARM SOAP AND WATER F/U WITH PCP RETURN WITH WORSENING SYMPTOMS DISCUSSED YOU HAVE A FOLLOW UP APPOINTMENT WITH RADHA GOMEZ AT THE [facility]. PHONE NUMBER IS [phone] IF YOU NEED TO RESCHEDULE. Instructions: Abscess (GEN), Warm Compress or Soak (GEN) Care Plan Goals: Problem: Infection Goal #1: No signs/symptoms of infection Instructions: Monitor for sign/symptoms of infection Monitor temperature Goal #2: White blood cell counts Within Normal Limits Instructions: Obtain labs per physician orders Patient Disposition: HOME SELF-CARE Prescriptions: New levofloxacin 750 mg tablet 750 mg PO DAILY 7 Days Qty: 7 0RF Continued aspirin [Adult Aspirin Regimen] 81 mg tablet,delayed release (DR/EC) 81 mg PO QDAY hydroxyzine HCl 25 mg tablet 25 mg PO TID PRN (Reason: anxiety) Qty: 90 1RF atorvastatin 40 mg tablet 40 mg PO QPM Qty: 30 2RF Jardiance 10 mg tablet 10 mg PO QAM Qty: 30 2RF fluoxetine 20 mg capsule 20 mg PO QDAY Qty: 30 2RF metformin 1,000 mg tablet 1,000 mg PO BID Qty: 60 2RF Trulicity 0.75 mg/0.5 mL pen injector 0.75 mg subcut QWEEK Qty: 2 0RF (DME) blood-glucose meter [Blood Glucose Monitoring] Kit See Rx Instructions .ROUTE Qty: 1 0RF Rx Instructions: daily and as needed (DME) Blood Glucose Test Strip See Rx Instructions .ROUTE Qty: 50 3RF Rx Instructions: daily and as needed (DME) lancets 33 gauge misc See Rx Instructions .ROUTE Qty: 100 2RF Rx Instructions: daily and as needed Did you review [place] PROOF CLERK for ALL controlled substances?: Not Applicable Discussed opioids are addictive and Narcan is available by prescription or from pharmacy.: No Condition: Stable
== END 2023-04-28 09:56 | disposition home or self-care (01) ==
LOC: ED 23:42 → INTOOBSV 04-26 01:48 → MEDSURG B 04-26 01:48 → OBSVTOIN 04-26 01:48 → MEDSURG B 04-26 03:26
PROVIDERS: ADMIT Hospitalist; ATTEND Physician Assistant